=== PATIENT | male | born 1960 | race Caucasian/White ===

== ENCOUNTER 2020-11-15 07:53 | Emergency (ER) | payer SELFPAY ==
[~2020-11-15] VITALS: Ht 182.9 cm; Wt 73.9 kg
[2020-11-15 07:54] VITALS: BP_SYST 133; BP_SYST 178; BP_DIAS 100; BP_DIAS 105
--- NOTE | 2020-11-15 08:07 | NUR ---
PT NA, MOVED TO BED 12. PUT INTO GOWN, ID IS IN HIS SWEATPANT POCKET, PHONE IS WITH PT, URINAL AT BEDSIDE FOR URINE SAMPLE.
[2020-11-15] MEDS ORDERED: KETOROLAC 30 MG/ML VIAL IVP ONE ×2 (08:20→09:05)
[2020-11-15] MEDS ORDERED: ONDANSETRON 4 MG/2 ML VIAL IVP ONE (08:20)
[2020-11-15] MEDS ORDERED: MORPHINE SULFATE 4 MG/ML SYR IVP ONE (08:20)
--- NOTE | 2020-11-15 08:27 | NUR ---
60 Y/O M BIBA FOR SHARP ABD PAIN IN LRQ. PAIN STARTED IN R LOWER BACK AND IS NOW RADIATING IN THE LRQ. PAIN IS CONSISTENT 07/09, NO MEDS FOR RELIEF. PT DENIES ANY SOB, COUGH, CHEST PAIN, FEVER OR CONTACT WITH ANYONE COVID POSITIVE. UPON PALPITATION, NO FLANK PAIN PRESENT OR RLQ. NKA. NO PMH. LAST BM WAS 0500 11/15/20, NORMAL, SOFT AND EASY TO PASS. NO PAIN DURING URINATION, BURNING OR ABNORMAL FREQUENCY. NO OTC RX. PT CONSENTED FOR US TO GIVE ANY INFORMATION TO FAMILY IF CONTACTED.
--- NOTE | 2020-11-15 08:30 | NUR ---
PT TAKEN TO CT
[2020-11-15 08:43] LABS: BASOPHILS # (AUTO) 0.1 K/uL (0.00-0.22); BASOPHILS % (AUTO) 0.7 % (0.0-2.0); EOSINOPHILS # (AUTO) 0.1 K/uL (0-0.4); HEMATOCRIT 48.9 % (36-52); HEMOGLOBIN 16.7 g/dL (12.0-18.0); LYMPHOCYTES # (AUTO) 0.6 K/uL (2.0-11.5); LYMPHOCYTES % (AUTO) 7.7 % (20.5-51.1); MEAN CORPUSCULAR HEMOGLOBIN 30 pg (27-31); MEAN CORPUSCULAR HGB CONC 34 g/dL (33-37); MEAN CORPUSCULAR VOLUME 89.1 fL (80-94); MONOCYTES # (AUTO) 0.5 K/uL (0.8-1.0); NEUTROPHILS # (AUTO) 7.1 K/uL (1.8-7.7); NEUTROPHILS % (AUTO) 84.6 % (42.2-75.2); PLATELET COUNT (AUTO) 182 K/uL (140-450); RED BLOOD CELL COUNT(AUTO) 5.48 MIL/uL (4.20-6.10); RED CELL DISTRIBUTION WIDTH 13.2 % (11.6-13.7); WHITE BLOOD COUNT (AUTO) 8.4 K/uL (4.8-10.8)
--- NOTE | 2020-11-15 09:31 | NUR ---
PAIN REEVALUATED, PT STATES HE IS CURRENTLY NOT HAVING ANY PAIN AT THIS MOMENT.
[2020-11-15 09:57] LABS: ALBUMIN 4.5 g/dL (3.4-5.0); ANION GAP 20.3 (8-16); CARBON DIOXIDE 21.6 mmol/L (21-32); CREATININE 1.4 mg/dL (0.6-1.3); POTASSIUM 3.9 mmol/L (3.5-5.1); TOTAL BILIRUBIN 0.5 mg/dL (0.0-1.0)
[2020-11-15 10:07] LABS: APPEARANCE,URINE CLEAR (CLEAR); BILIRUBIN,URINE NEGATIVE (NEGATIVE); BLOOD, URINE NEGATIVE (NEGATIVE); COLOR,URINE YELLOW (YELLOW); LEUKOCYTE ESTERASE ,URINE NEGATIVE (NEGATIVE); NITRITE, URINE NEGATIVE (NEGATIVE); PH,URINE 8.5 (5.0-9.0); UGLUCOSE NEGATIVE (NEGATIVE)
[2020-11-15 10:36] LABS: BARBITURATE, URINE NEGATIVE ng/ml (NEG <=200); BENZODIAZEPINE, URINE NEGATIVE ng/mL (NEG <=200); CANNABINOID, URINE NEGATIVE ng/mL (NEG <=50); COCAINE, URINE NEGATIVE ng/mL (NEG <=300); OPIATE, URINE NEGATIVE ng/mL (NEG <=2000); PHENCYCLIDINE SCREEN,URINE NEGATIVE ng/mL (NEG <=25)
[2020-11-15 11:59] VITALS: BP 133/105
--- NOTE | 2020-11-15 12:00 | NUR ---
Patient discharged with v/s stable. Written and verbal after care instructions given and explained. Patient alert, oriented and verbalized understanding of instructions. Ambulatory with steady gait. All questions addressed prior to discharge. ID band removed. Patient advised to follow up with PMD. Rx of FLOMAX, NAPROSYN, NORCO given. Patient educated on indication of medication including possible reaction and side effects. Opportunity to ask questions provided and answered.
== END 2020-11-15 12:00 | disposition home or self-care (01) ==
LOC: MED 07:53
DX: N20.1 Calculus of ureter (principal)
CPT/HCPCS: 36415; 74176; 80053; 80305; 81003; 83690; 85025; 96374; 96375; 99284; J1885; J2270; J2405